=== PATIENT | male | born 1985 | race African-American/Black ===

== ENCOUNTER 2022-05-04 10:02 | Outpatient (CLI) | payer MEDICARE, MEDICAID, SELFPAY | END 2022-05-04 10:03 | disposition home or self-care (01) | PROVIDERS: Visit Provider Physician Assistant | DX: H90.3 Sensorineural hearing loss, bilateral (principal) | CPT/HCPCS: 92553; 92555; 92567 ==

== ENCOUNTER 2022-05-21 07:58 | Outpatient (RCR) | payer MEDICARE, MEDICAID, SELFPAY | END 2022-08-19 23:59 | disposition home or self-care (01) | LOC: ANHAUDASC 07:58 | PROVIDERS: PCP Physician Assistant; Visit Provider Physician Assistant | DX: Z46.1 Encounter for fitting and adjustment of hearing aid (principal) | CPT/HCPCS: V5160; V5261; V5264 ==